=== PATIENT | male | born 1960 | race Caucasian/White ===

== ENCOUNTER 2016-04-11 07:29 | Outpatient (CLI) ==
[2015-06-20 17:35] VITALS: BMI 43.1
[2016-04-11 07:51] LABS: BASOPHILS # (AUTO) 0.1 K/uL (0-0.2); BASOPHILS % (AUTO) 0.6 % (0.0-3.0); EOSINOPHILS # (AUTO) 0.3 K/ul (0.0-0.7); EOSINOPHILS % (AUTO) 4.1 % (0.0-7.0); HEMATOCRIT 45.3 % (42.0-52.0); HEMOGLOBIN 15.8 g/dl (14.0-18.0); IMMATURE GRANULOCYTE % (AUTO) 0.4 % (0.0-5.0); LYMPHOCYTES # (AUTO) 2.6 K/uL (0.60-3.4); LYMPHOCYTES % (AUTO) 31.3 (10.0-50.0); MEAN CORPUSCULAR HEMOGLOBIN 30.3 pg (27.0-31.0); MEAN CORPUSCULAR HGB CONC 34.9 (31.8-35.4); MEAN CORPUSCULAR VOLUME 86.9 fl (80.0-94.0); MONOCYTES # (AUTO) 0.7 K/uL (0.4-2.0); MONOCYTES % (AUTO) 8.2 (0-10); NEUTROPHILS # (AUTO) 4.5 K/ul (2.0-6.9); NEUTROPHILS % (AUTO) 55.4; PLATELET COUNT 197 10^3/uL (140-440); RED BLOOD COUNT 5.21 10^6/ul (4.70-6.10)
[2016-04-11 08:34] LABS: ALBUMIN 3.6 g/dL (3.4-5.0); ALBUMIN/GLOBULIN RATIO 1.09; ANION GAP 16.4; BILIRUBIN,TOTAL 0.56 mg/dL (0.00-1.20); BUN/CREATININE RATIO 15.78; CALCIUM 9.3 mg/dL (8.2-10.2); CHOL/HDL RATIO 8.3 (4.5-6.4); CREATININE 0.95 mg/dL (0.60-1.10); POTASSIUM 4.4 mmol/L (3.5-5.1); TOTAL PROTEIN 6.9 g/dL (6.4-8.2)
== END 2016-04-11 07:30 | disposition home or self-care (01) ==
LOC: LAB 07:29
PROVIDERS: ATTEND Emergency Medicine
DX: E11.9 Type 2 diabetes mellitus without complications (principal); E78.1 Pure hyperglyceridemia; E78.5 Hyperlipidemia, unspecified; I10 Essential (primary) hypertension
CPT/HCPCS: 36415; 80053; 80061; 83036; 84443; 85025

== ENCOUNTER 2016-04-13 09:11 | Outpatient (CLI) ==
[2015-06-20 17:35] VITALS: BMI 43.1
--- NOTE | 2016-04-13 09:57 | DI ---
EXAM: Three views of the left elbow. History: Left elbow pain. Findings: No acute fracture or dislocation. No abnormal calcifications or radiopaque foreign bonnie s. Mild joint space narrowing at the elbow. Impression: No acute osseous abnormality. Mild arthritis.
== END 2016-04-13 09:12 | disposition home or self-care (01) ==
LOC: RAD 09:11
PROVIDERS: ATTEND Emergency Medicine
DX: M25.522 Pain in left elbow (principal)

== ENCOUNTER 2016-04-15 08:53 | Outpatient (CLI) ==
[2015-06-20 17:35] VITALS: BMI 43.1
== END 2016-04-15 08:54 | disposition home or self-care (01) ==
LOC: LAB 08:53
PROVIDERS: ATTEND Nurse Practitioner Family
DX: M25.522 Pain in left elbow (principal)
CPT/HCPCS: 36415; 84550

== ENCOUNTER 2016-07-06 07:11 | Outpatient (CLI) ==
[2015-06-20 17:35] VITALS: BMI 43.1
[2016-07-06 07:33] LABS: BASOPHILS % (AUTO) 0.5 % (0.0-3.0); EOSINOPHILS # (AUTO) 0.3 K/ul (0.0-0.7); EOSINOPHILS % (AUTO) 3.6 % (0.0-7.0); HEMATOCRIT 44.9 % (42.0-52.0); HEMOGLOBIN 15.7 g/dl (14.0-18.0); IMMATURE GRANULOCYTE % (AUTO) 0.3 % (0.0-5.0); LYMPHOCYTES # (AUTO) 2.6 K/uL (0.60-3.4); LYMPHOCYTES % (AUTO) 33.7 (10.0-50.0); MEAN CORPUSCULAR HEMOGLOBIN 30.3 pg (27.0-31.0); MEAN CORPUSCULAR VOLUME 86.5 fl (80.0-94.0); MONOCYTES # (AUTO) 0.5 K/uL (0.4-2.0); MONOCYTES % (AUTO) 6.9 (0-10); NEUTROPHILS # (AUTO) 4.2 K/ul (2.0-6.9); PLATELET COUNT 190 10^3/uL (140-440); RED BLOOD COUNT 5.19 10^6/ul (4.70-6.10); WHITE BLOOD COUNT 7.56 K/ul (4.2-10.2)
[2016-07-06 08:10] LABS: ALBUMIN 3.7 g/dL (3.4-5.0); ALBUMIN/GLOBULIN RATIO 1.06; ANION GAP 10.9; BILIRUBIN,TOTAL 0.62 mg/dL (0.00-1.20); BUN/CREATININE RATIO 15.46; CALCIUM 9.1 mg/dL (8.2-10.2); CHOL/HDL RATIO 7.5 (4.5-6.4); CREATININE 0.97 mg/dL (0.60-1.10); POTASSIUM 3.9 mmol/L (3.5-5.1); TOTAL PROTEIN 7.2 g/dL (6.4-8.2)
== END 2016-07-06 07:12 | disposition home or self-care (01) ==
LOC: LAB 07:11
PROVIDERS: ATTEND Emergency Medicine
DX: E11.9 Type 2 diabetes mellitus without complications (principal); E78.5 Hyperlipidemia, unspecified; I10 Essential (primary) hypertension
CPT/HCPCS: 36415; 80053; 80061; 83036; 84443; 85025

== ENCOUNTER 2016-11-23 16:17 | Outpatient (CLI) ==
[2015-06-20 17:35] VITALS: BMI 43.1
[2016-11-23 16:29] LABS: BASOPHILS # (AUTO) 0.1 K/uL (0-0.2); BASOPHILS % (AUTO) 0.6 % (0.0-3.0); EOSINOPHILS # (AUTO) 0.3 K/ul (0.0-0.7); EOSINOPHILS % (AUTO) 3.5 % (0.0-7.0); HEMATOCRIT 45.2 % (42.0-52.0); HEMOGLOBIN 16.4 g/dl (14.0-18.0); IMMATURE GRANULOCYTE % (AUTO) 0.2 % (0.0-5.0); LYMPHOCYTES # (AUTO) 2.2 K/uL (0.60-3.4); LYMPHOCYTES % (AUTO) 27.7 (10.0-50.0); MEAN CORPUSCULAR HGB CONC 36.3 (31.8-35.4); MEAN CORPUSCULAR VOLUME 85.4 fl (80.0-94.0); MONOCYTES # (AUTO) 0.5 K/uL (0.4-2.0); MONOCYTES % (AUTO) 6.4 (0-10); NEUTROPHILS % (AUTO) 61.6; PLATELET COUNT 136 10^3/uL (140-440); RED BLOOD COUNT 5.29 10^6/ul (4.70-6.10); WHITE BLOOD COUNT 8.09 K/ul (4.2-10.2)
[2016-11-23 17:14] LABS: ALBUMIN 3.8 g/dL (3.4-5.0); ALBUMIN/GLOBULIN RATIO 0.95; ANION GAP 18.5; BILIRUBIN,TOTAL 0.49 mg/dL (0.00-1.20); BUN/CREATININE RATIO 12.17; CALCIUM 9.7 mg/dL (8.2-10.2); CHOL/HDL RATIO 8.5 (4.5-6.4); CREATININE 1.15 mg/dL (0.60-1.10); POTASSIUM 4.5 mmol/L (3.5-5.1); TOTAL PROTEIN 7.8 g/dL (6.4-8.2)
== END 2016-11-23 16:18 | disposition home or self-care (01) ==
LOC: LAB 16:17
PROVIDERS: ATTEND Emergency Medicine
DX: E11.9 Type 2 diabetes mellitus without complications (principal); E78.1 Pure hyperglyceridemia; E78.5 Hyperlipidemia, unspecified; I10 Essential (primary) hypertension; E66.9 Obesity, unspecified
CPT/HCPCS: 36415; 80053; 80061; 83036; 84443; 85025

== ENCOUNTER 2017-01-25 09:47 | Outpatient (CLI) ==
[2015-06-20 17:35] VITALS: BMI 43.1
[2017-01-25 10:43] LABS: CHOL/HDL RATIO 7.7 (4.5-6.4)
== END 2017-01-25 09:48 | disposition home or self-care (01) ==
LOC: LAB 09:47
PROVIDERS: ATTEND Internal Medicine Cardiovascular Disease
DX: E78.5 Hyperlipidemia, unspecified (principal)
CPT/HCPCS: 36415; 80061

== ENCOUNTER 2017-03-08 08:03 | Outpatient (CLI) ==
[2015-06-20 17:35] VITALS: BMI 43.1
[2017-03-08 08:41] LABS: BASOPHILS # (AUTO) 0.1 K/uL (0-0.2); BASOPHILS % (AUTO) 0.7 % (0.0-3.0); EOSINOPHILS # (AUTO) 0.3 K/ul (0.0-0.7); EOSINOPHILS % (AUTO) 4.4 % (0.0-7.0); HEMATOCRIT 44.8 % (42.0-52.0); IMMATURE GRANULOCYTE % (AUTO) 0.3 % (0.0-5.0); LYMPHOCYTES % (AUTO) 26.5 (10.0-50.0); MEAN CORPUSCULAR HEMOGLOBIN 30.5 pg (27.0-31.0); MEAN CORPUSCULAR HGB CONC 35.7 (31.8-35.4); MEAN CORPUSCULAR VOLUME 85.3 fl (80.0-94.0); MONOCYTES # (AUTO) 0.5 K/uL (0.4-2.0); MONOCYTES % (AUTO) 6.7 (0-10); NEUTROPHILS # (AUTO) 4.6 K/ul (2.0-6.9); NEUTROPHILS % (AUTO) 61.4; PLATELET COUNT 184 10^3/uL (140-440); RED BLOOD COUNT 5.25 10^6/ul (4.70-6.10)
[2017-03-08 09:16] LABS: ALBUMIN 3.5 g/dL (3.4-5.0); ALBUMIN/GLOBULIN RATIO 0.95; BILIRUBIN,TOTAL 0.8 mg/dL (0.00-1.20); BUN/CREATININE RATIO 11.34; CALCIUM 9.2 mg/dL (8.2-10.2); CHOL/HDL RATIO 7.6 (4.5-6.4); CREATININE 0.97 mg/dL (0.60-1.10); TOTAL PROTEIN 7.2 g/dL (6.4-8.2)
== END 2017-03-08 08:04 | disposition home or self-care (01) ==
LOC: LAB 08:03
PROVIDERS: ATTEND Emergency Medicine
DX: E78.5 Hyperlipidemia, unspecified (principal); E11.9 Type 2 diabetes mellitus without complications; I10 Essential (primary) hypertension
CPT/HCPCS: 36415; 80053; 80061; 83036; 84443; 85025

== ENCOUNTER 2017-05-09 08:30 | Outpatient (CLI) ==
[2015-06-20 17:35] VITALS: BMI 43.1
== END 2017-05-09 08:31 | disposition home or self-care (01) ==
LOC: LAB 08:30
PROVIDERS: ATTEND Emergency Medicine
DX: E78.5 Hyperlipidemia, unspecified (principal); E78.1 Pure hyperglyceridemia; E11.9 Type 2 diabetes mellitus without complications; I10 Essential (primary) hypertension; Z12.5 Encounter for screening for malignant neoplasm of prostate
CPT/HCPCS: 36415; 80053; 80061; 83036; 85025

== ENCOUNTER 2017-08-07 08:18 | Outpatient (CLI) ==
[2015-06-20 17:35] VITALS: BMI 43.1
== END 2017-08-07 08:19 | disposition home or self-care (01) ==
LOC: LAB 08:18
PROVIDERS: ATTEND Emergency Medicine
DX: E11.9 Type 2 diabetes mellitus without complications (principal)
CPT/HCPCS: 36415; 80053; 80061; 84443

== ENCOUNTER 2017-10-16 08:05 | Outpatient (CLI) ==
[2015-06-20 17:35] VITALS: BMI 43.1
== END 2017-10-16 08:06 | disposition home or self-care (01) ==
LOC: LAB 08:05
PROVIDERS: ATTEND Emergency Medicine
DX: E11.9 Type 2 diabetes mellitus without complications (principal); E78.5 Hyperlipidemia, unspecified; I10 Essential (primary) hypertension; I48.0 Paroxysmal atrial fibrillation
CPT/HCPCS: 36415; 80053; 80061; 83036; 84443; 85025

== ENCOUNTER 2017-10-18 09:27 | Outpatient (CLI) ==
[2015-06-20 17:35] VITALS: BMI 43.1
== END 2017-10-18 09:28 | disposition home or self-care (01) ==
LOC: LAB 09:27
PROVIDERS: ATTEND Emergency Medicine
DX: E11.9 Type 2 diabetes mellitus without complications (principal)
CPT/HCPCS: 82043

== ENCOUNTER 2017-11-29 17:44 | Observation (INO) ==
[2017-11-29] MEDS ORDERED: MORPHINE 4 MG/ML SYRINGE IVP STA (18:11)
[2017-11-29] MEDS ORDERED: ZOFRAN 4 MG/2 ML IVP STA ×2 (18:11→19:57)
--- NOTE | 2017-11-29 18:17 | ED.PDOC ---
General Stated Complaint: ABDOMINAL PAIN, RECTAL BLEEDING ONSET THIS MORNING Time Seen by Physician: 18:00 (HX/O AFIB ON XERALTO) Mode of Arrival: Walk-In Information Source: Patient Exam Limitations: No limitations Nursing and Triage Documentation Reviewed and Agree: Yes Does patient meet sepsis criteria?: No If yes, has appropriate treatment been initiated?: No System Inflammatory Response Syndrome: Not Applicable <JUANA HUSSEIN - Last Filed: 11/29/17 18:25> <KENTRELL OCHOA - Last Filed: 11/29/17 19:59> ED Provider: Dr. KENTRELL OCHOA Chief Complaint: Abdominal Pain Primary Care Provider[facility] Sepsis Protocol: For patient's 13 years and over: Temp is 96.8 and below OR 101 and greater Pulse >90 BPM Resp >20/minute Acutely Altered Mental Status Are patient's symptoms suggestive of a new infection, such as: -Pneumonia -Skin, Soft Tissue -Endocarditis -UTI -Bone, Joint Infection -Implantable Device -Acute Abdominal Infection -Wound Infection -Meningitis -Blood Stream Catheter Infection -Unknown GI Complaint Exam - Abdominal Pain Complaint/Exam Onset: Gradual (HX/O AFIB ON XERALTO) Duration: SINCE 10 AM Symptoms Are: Still present Timing: Intermittent Initial Severity: Mild Current Severity: Mild Location of Pain: LLQ Radiates To: Reports: LLQ Character: Reports: Aching Aggravating: Reports: None Alleviating: Reports: None Associated Signs and Symptoms: Denies: Diaphoresis, Fever, Cough, Chest pain, Dizziness, Back pain, Constipation, Blood in stool, Dysuria, Urinary frequency, Decreased urine output, Decreased appetite, Discharge, Nausea, Vomiting, Diarrhea, Decreased activity Related History: Reports: Similar episode (DIVERTICULITIS) AAA Risk Factors: Reports: Hypertension Cardiac Risk Factors: Reports: DM, Hypertension Testicular Torsion Risk Factors: Reports: None Surgical Obstruction Risk Factors: Reports: None Related Surgical History: Reports: None Abdominal Findings: Present: None Rectal Exam: Present: Other (BLOOD WAS NOTED ) Differential Diagnoses: Appendicitis, Bowel Obstruction, Constipation, Diverticulitis, Gastroenteritis, Pancreatitis Quality Indicators for AMI: EKG in 10min. Quality Indicators for Cardiac Chest Pain: EKG in 10min. Quality Indicator For Non-Traumatic Chest Pain/Syncope: EKG Performed <JUANA HUSSEIN - Last Filed: 11/29/17 18:25> Review of Systems - Review Of Systems Constitutional: Reports: No symptoms Eyes: Reports: No symptoms Ears, Nose, Mouth, Throat: Reports: No symptoms Respiratory: Reports: No symptoms Cardiac: Reports: No symptoms GI: Reports: Abdominal pain, Rectal bleeding : Reports: No symptoms Musculoskeletal: Reports: No symptoms Skin: Reports: No symptoms Neurological: Reports: No symptoms Endocrine: Reports: No symptoms Hematologic/Lymphatic: Reports: No symptoms All Other Systems: Reviewed and Negative <MARYBENEDICTOJUANA Henley Last Filed: 11/29/17 18:25> Past Medical History - Past Medical History Previously Healthy: Yes Endocrine: Reports: DM 2, Dyslipidemia Cardiovascular: Reports: A-Fib Respiratory: Reports: None Hematological: Reports: None Gastrointestinal: Reports: None Genitourinary: Reports: None Neuro/Psych: Reports: None Musculoskeletal: Reports: Gout Cancer: Reports: None - Surgical History General Surgical History: Reports: Unknown - Family History Family History: Reports: Unknown - Social History Smoking Status: Former smoker Hx Substance Use: No Alcohol Screening: None <JOVITAJUANA Henley Filed: 11/29/17 18:25> Physical Exam - Physical Exam Appearance: Well-appearing, No pain distress, Well-nourished Eyes: AJSON, EOMI, Conjunctiva clear ENT: Ears normal, Nose normal, Oropharynx normal Respiratory: Airway patent, Breath sounds clear, Breath sounds equal, Respirations nonlabored Cardiovascular: RRR, Pulses normal, No rub, No murmur GI/: Tender (LLQ . RECTAL EXAM :BLOOD NOTED ON THE RECTAL VAULT (NURSE WAS PRESENT )) Musculoskeletal: Normal strength, ROM intact, No edema, No calf tenderness Skin: Warm, Dry, Normal color Neurological: Sensation intact, Motor intact, Reflexes intact, Cranial nerves intact, Alert, Oriented Psychiatric: Affect appropriate, Mood appropriate <MARYBENEDICTOJUANA Henley Last Filed: 11/29/17 18:25> Interpretation - Radiological Technologist Rhythm: Other (AFIB) - EKG Interpretation Rhythm: Other (AFIB WITH CONTROLLED RATE) [place]: Left ST Segment: Other (POOR R WAVE PROGRESSION) <JOVITAJUANA Henley Last Filed: 11/29/17 18:25> Physician Notification - Case Discussed Physician Notified: BRANDO Time of Notification: 19:00 <JOVITAJUANA Henley Last Filed: 11/29/17 18:25> - Case Discussed Physician Notified: dr salmeron Time of Notification: 19:58 <KENTRELL OCHOA - Last Filed: 11/29/17 19:59> Critical Care Note - Critical Care Note Total Time (mins): 0 <JUANA HUSSEIN - Last Filed: 11/29/17 18:25> Course - Course Hematology/Chemistry: 11/29/17 18:14 <JUANA HUSSEIN - Last Filed: 11/29/17 18:25> - Course Hematology/Chemistry: 11/29/17 18:14 11/29/17 18:14 <KENTRELL OCHOA - Last Filed: 11/29/17 19:59> - Course Orders, Labs, Meds: Lab Review 11/29/17 11/29/17 11/29/17 18:10 18:14 18:14 WBC 12.27 H RBC 4.83 Hgb 14.6 Hct 42.7 MCV 88.4 MCH 30.2 MCHC 34.2 RDW Coeff of Solitario 14.0 Plt Count 182 Immature Gran % (Auto) 0.2 Neut % (Auto) 76.2 Lymph % (Auto) 14.8 [place] % (Auto) 6.5 Eos % (Auto) 2.0 Baso % (Auto) 0.3 Immature Gran # (Auto) 0.0 Neut # (Auto) 9.3 H Lymph # (Auto) 1.8 [place] # (Auto) 0.8 Eos # (Auto) 0.3 Baso # (Auto) 0.0 PT 13.5 H INR 1.36 APTT 34.7 Sodium Potassium Chloride Carbon Dioxide Anion Gap BUN Creatinine Estimated GFR (MDRD) BUN/Creatinine Ratio Glucose Calcium Total Bilirubin AST ALT Alkaline Phosphatase Total Protein Albumin Globulin Albumin/Globulin Ratio Amylase Lipase Urine Color Urine Clarity Urine pH Ur Specific [place] Urine Protein Urine Glucose (UA) Urine Ketones Urine Blood Urine Nitrite Urine Bilirubin Urine Urobilinogen Ur Leukocyte Esterase Stl Occult Blood (IFOB) Positive Stool Occult Blood #2 Pending Stool Occult Blood #3 Pending 11/29/17 11/29/17 18:14 19:32 WBC RBC Hgb Hct MCV MCH MCHC RDW Coeff of Solitario Plt Count Immature Gran % (Auto) Neut % (Auto) Lymph % (Auto) [place] % (Auto) Eos % (Auto) Baso % (Auto) Immature Gran # (Auto) Neut # (Auto) Lymph # (Auto) [place] # (Auto) Eos # (Auto) Baso # (Auto) PT INR APTT Sodium 141 Potassium 4.1 Chloride 107 Carbon Dioxide 26 Anion Gap 12.1 BUN 13 Creatinine 0.99 Estimated GFR (MDRD) 78.00 BUN/Creatinine Ratio 13.13 Glucose 95 Calcium 8.9 Total Bilirubin 1.0 AST 16 ALT 21 Alkaline Phosphatase 81 Total Protein 7.0 Albumin 3.6 Globulin 3.4 Albumin/Globulin Ratio 1.06 Amylase 22 L Lipase 7 L Urine Color Dark Urine Clarity Clear Urine pH 5.5 Ur Specific [place] 1.025 Urine Protein Negative Urine Glucose (UA) Negative Urine Ketones Negative Urine Blood Negative Urine Nitrite Negative Urine Bilirubin Negative Urine Urobilinogen 0.2 Ur Leukocyte Esterase Negative Stl Occult Blood (IFOB) Stool Occult Blood #2 Stool Occult Blood #3 Orders Category Date Time Status EKG-(ED ONLY) Stat CARDIO 11/29/17 18:12 Completed NPO REMINDER: IMAGING ONCE CARE 11/29/17 18:13 Completed AMYLASE Stat LAB 11/29/17 18:14 Completed CBC W/ AUTO DIFF Stat LAB 11/29/17 18:14 Completed COMPREHENSIVE METABOLIC PANEL Stat LAB 11/29/17 18:14 Completed LIPASE Stat LAB 11/29/17 18:14 Completed OCCULT BLOOD, STOOL Stat LAB 11/29/17 18:10 Results PARTIAL THROMBOPLASTIN TIME Stat LAB 11/29/17 18:14 Completed PT WITH INR Stat LAB 11/29/17 18:14 Completed URINALYSIS C & S IF INDICATED Stat LAB 11/29/17 19:32 Completed Morphine Sulfate [Morphine 2 mg/ml Syringe] MEDS 11/29/17 19:57 Stat 2 mg IVP ONCE STA Morphine Sulfate [Morphine 4 mg/ml Syringe] MEDS 11/29/17 18:11 Discontinued 4 mg IVP ONCE STA Ondansetron HCl/Pf [Zofran 4 mg/2 ml] MEDS 11/29/17 18:11 Discontinued 4 mg IVP ONCE STA Ondansetron HCl/Pf [Zofran 4 mg/2 ml] MEDS 11/29/17 19:57 Stat 4 mg IVP ONCE STA CT ABDOMEN/PELVIS W/WO CONTRAS Stat RADS 11/29/17 18:12 Completed Medications Discontinued Medications Generic Name Dose Route Start Last Admin Trade Name Freq PRN Reason Stop Dose Admin Morphine Sulfate 4 mg 11/29/17 18:11 11/29/17 18:21 Morphine 4 Mg/Ml Syringe IVP 11/29/17 18:12 4 mg ONCE STA Administration Ondansetron HCl 4 mg 11/29/17 18:11 11/29/17 18:20 Zofran 4 Mg/2 Ml IVP 11/29/17 18:12 4 mg ONCE STA Administration Vital Signs: Temp Pulse Resp BP Pulse Ox 11/29/17 17:44 99.1 F 76 16 132/93 H 96 Departure - Departure Pt referred to PMD for follow-up: Yes IPMP verified?: No Disposition Discussed With: Patient, Family <JUANA HUSSEIN - Last Filed: 11/29/17 18:25> - Departure Time of Disposition: 19:58 Pt referred to PMD for follow-up: No IPMP verified?: No Disposition Discussed With: Patient, Family <KENTRELL OCHOA - Last Filed: 11/29/17 19:59> - Departure Disposition: ADMITTED INPATIENT Discharge Problem: Abdominal pain, Acute diverticulitis Instructions: Rectal Bleeding (ED) Condition: Good Additional Instructions: Please call your Family Physician as soon as possible to schedule a follow-up appointment. Allergies/Adverse Reactions: Allergies doxycycline Allergy (Intermediate, Verified 11/29/17 17:47) swelling lisinopril Allergy (Mild, Verified 11/29/17 17:47) cough Patient will notify drugstore Home Medications: Ambulatory Orders Aspirin 81 mg PO DAILY 09/24/14 Niacin 500 mg PO DAILY 09/24/14 Rivaroxaban [Xarelto] 20 mg PO DAILY 03/10/17
--- NOTE | 2017-11-29 19:54 | CT ---
EXAM: CT abdomen pelvis with and without contrast TECHNIQUE: Helical axial CT of the abdomen and pelvis was performed with and without contrast with c oronal and sagittal reconstructions. COMPARISON: None HISTORY: Rectal bleeding and history of diverticulitis. FINDINGS: There is a short segment of sigmoid colon bowel wall thickening in the left lower quadrant with quite a bit of surrounding mesenteric edema and some associated diverticuli. There is no free air or absc ess seen. There is no bowel obstruction. There are no pathologic lymph nodes. The liver, spleen, pancreas,and adrenal glands show no acute abnormality. There is fatty infiltration of the liver. There is a splenule at the spleen. Lung bases are well-aerated. There is no hiatal h ernia. There is a small calcification in the gallbladder consistent with sludge or small stones. The re is no gallbladder inflammation. There is no biliary or pancreatic ductal dilatation. There are no suspicious renal masses or large cysts and no hydronephrosis. There are no kidney stones . There is a small cyst in the left kidney. Both ureters demonstrate normal course and caliber. Ther e is no filling defect in the urinary bladder. The appendix is unremarkable. There are no abdominal wall hernias. There is some mild calcific athe rosclerosis of the aorta. There are no acute osseous abnormalities. IMPRESSION: 1. Acute sigmoid diverticulitis as described. 2. Gallstones or sludge with no inflammation. 3. Fatty liver. 4. Other findings as above.
[2017-11-29] MEDS ORDERED: MORPHINE 2 MG/ML SYRINGE IVP STA (19:57)
[2017-11-29] MEDS ORDERED: LEVAQUIN 500 MG in PREMIX 100 ML D5W 1 BAG IV SCH (20:30)
[2017-11-29] MEDS ORDERED: HUMULIN R SUBCUT PRN (20:35)
[2017-11-29 21:09] VITALS: BMI 42.0
[2017-11-29] MEDS: LOPID PO SCH (21:32)
[2017-11-29] MEDS ORDERED: LEVAQUIN 100 ML IV ONE (21:46)
[2017-11-29] MEDS ORDERED: FLAGYL 500 MG/100 ML 100 ML IV ONE (21:46)
[2017-11-29] MEDS: D5%-NS-KCL 20 MEQ/L IV SOL 1,000 ML IV SCH (22:04)
[2017-11-29] MEDS: FLAGYL 500 MG/100 ML 500 MG in PREMIX 100 ML NS 1 BAG IV SCH (22:04)
[2017-11-29] MEDS: ZOFRAN 4 MG/2 ML IVP PRN (23:26)
[2017-11-29] MEDS: MORPHINE 2 MG/ML SYRINGE IVP PRN (23:26)
[2017-11-30] MEDS ORDERED: FLAGYL 500 MG/100 ML 100 ML IV ONE (05:30)
[2017-11-30] MEDS: FLAGYL 500 MG/100 ML 500 MG in PREMIX 100 ML NS 1 BAG IV SCH ×3 (05:51→19:59)
[2017-11-30] MEDS: MORPHINE 2 MG/ML SYRINGE IVP PRN ×4 (07:22→21:19)
[2017-11-30] MEDS: ZOFRAN 4 MG/2 ML IVP PRN ×4 (07:22→21:19)
[2017-11-30] MEDS: LOPID PO SCH ×2 (08:58→21:20)
[2017-11-30] MEDS: LIPITOR PO SCH (08:59)
[2017-11-30] MEDS: ZYLOPRIM PO SCH (08:59)
[2017-11-30] MEDS: D5%-NS-KCL 20 MEQ/L IV SOL 1,000 ML IV SCH ×2 (09:02→18:17)
[2017-11-30] MEDS: LOVENOX SUBCUT SCH ×2 (09:03→21:19)
[2017-11-30] MEDS ORDERED: XARELTO PO SCH (17:00)
[2017-11-30] MEDS ORDERED: NON-FORMULARY MEDICATION (Rivaroxaban [Xarelto] 20 MG) PO SCH (21:00)
[2017-11-30] MEDS: LEVAQUIN 500 MG in PREMIX 100 ML D5W 1 BAG IV SCH (21:19)
[2017-12-01] MEDS: D5%-NS-KCL 20 MEQ/L IV SOL 1,000 ML IV SCH ×4 (03:37→18:20)
[2017-12-01] MEDS: FLAGYL 500 MG/100 ML 500 MG in PREMIX 100 ML NS 1 BAG IV SCH ×3 (05:44→22:05)
[2017-12-01] MEDS: MORPHINE 2 MG/ML SYRINGE IVP PRN (05:59)
[2017-12-01] MEDS: LOPID PO SCH ×2 (09:15→20:09)
[2017-12-01] MEDS: MORPHINE 2 MG/ML SYRINGE IVP SCH ×2 (09:16→20:38)
[2017-12-01] MEDS: ZYLOPRIM PO SCH (09:16)
[2017-12-01] MEDS: MIRALAX PO SCH (09:16)
[2017-12-01] MEDS: LOVENOX SUBCUT SCH ×2 (09:16→20:08)
[2017-12-01] MEDS: LIPITOR PO SCH (09:16)
--- NOTE | 2017-12-01 10:23 | HP ---
DATE OF SERVICE: 11/29/17 CHIEF COMPLAINT/HISTORY OF PRESENT ILLNESS: 57-year-old male came to the emergency room with severe left lower quadrant tenderness since morning. He has been passing some blood. The patient has history of atrial fibrillation on Xarelto. He came to the emergency room as the patient was scared that he was having bloody bowel movements. Temperature 99.1, saw Dr. Joseph in the emergency room. White count 12,[address] abdomen adn pelvis done which showed acute sigmoid diverticulitis as described. No bowel obstruction. Gallstones and sludge in the gallbladder. No inflammation. Fatty liver. At that time, the patient was admitted to the hospital with rectal bleeding, sigmoid diverticulitis with white count elevation with left shift. REVIEW OF SYSTEMS: CONSTITUTIONAL: No fever, no chills. HEENT: Normal. ENDOCRINE: No weight gain; no weight loss. CVS: No chest pain. No PND, no orthopnea. No shortness of breath. No PND, no orthopnea. RESPIRATORY: No cough, no congestion. No hemoptysis. GI: Nausea. No vomiting. Abdominal pain. Blood in stool. : No hematuria. No polyuria. MUSCULOSKELETAL: No joint swelling. PSYCHIATRIC: Anxious. No depression. No suicidal thoughts. No homicidal thoughts. SKIN: Intact, no open lesions. PAST MEDICAL HISTORY: CAD two years ago Atrial fibrillation Dyslipidemia Sleep apnea on CPAP Diverticulosis Osteoarthritis Diabetes mellitus Hypertension Gout in elbow PAST SURGICAL HISTORY: None PERSONAL HISTORY: Does not smoke. No alcohol use. FAMILY HISTORY: Coronary artery disease, dialysis and bone cancer. MEDICATIONS: Niacin Aspirin [place] 3 Xarelto Lipitor Lopid Metoprolol Allopurinol ALLERGIES: DOXYCYCLINE PHYSICAL EXAMINATION: GENERAL: Sick looking male lying in bed in pain. V/S: BP 132/93, respiratory rate 16, heart rate 76, temperature 99.1, saturation 96. HEENT: Atraumatic, normocephalic. No scleral icterus. Mucosa dry. NECK: Supple. No JVD, no bruit. No lymphadenopathy. No thyromegaly. HEART: S1, S2 normal. No murmur. No cyanosis or clubbing. No ascites. LUNGS: Clear to auscultation. No rales or rhonchi. ABDOMEN: Soft. Left lower quadrant tenderness positive. Bowel sounds are not present. No CVA tenderness. No rigidity or guarding. EXTREMITIES: No pedal edema. No cyanosis or clubbing MUSCULOSKELETAL: Normal joints, no swelling. NEUROLOGIC: The patient is awake and alert. SKIN: Intact; no open lesions. LYMPHATIC: No lymph nodes palpable. LABS: White count 12.27, hemoglobin 14.6, hematocrit 42.7, platelet count 182. Sodium 141, potassium 4.1, chloride 107, bicarb 26, BUN 13, creatinine 0.77. Urine negative. Stool for occult blood test positive. ASSESSMENT: 1. ACUTE SIGMOID DIVERTICULITIS 2. RECTAL BLEEDING 3. ATRIAL FIBRILLATION ON CARE HOME ANTICOAGULATION 4. CAD 5. DYSLIPIDEMIA 6. HYPERTENSION 7. GOUT 8. DIABETES PLAN: 1. Admit the patient to the regular floor. 2. NPO 3. CBC, CMP today and daily 4. Stop Xarelto 5. Start patient on Flagyl and Levaquin 6. NPO 7. D5 NS 8. Accu-Checks every four hours with coverage TIME SPENT: MORE THAN 65 minutes MTDD
--- NOTE | 2017-12-01 10:29 | PN ---
DATE OF SERVICE: 11/30/17 SUBJECTIVE: The patient is still having pain, 8 to 9/10, not passing gas. He has not had any bowel movements to see if there is any blood. REVIEW OF SYSTEMS: CONSTITUTIONAL: No fever, no chills. HEENT: Normal. ENDOCRINE: No weight gain, no weight loss. CVS: No angina symptoms. No CHF symptoms. No palpitations. No atypical chest pain for CAD. No shortness of breath. No PND, no orthopnea. RESPIRATORY: No cough, no hemoptysis. GI: Abdominal tenderness. No nausea, no vomiting. : No hematuria. No polyuria. MUSCULOSKELETAL: No joint swelling. PSYCHIATRIC: Not anxious. No depression. No suicidal thoughts. No homicidal thoughts. SKIN: Intact. No rash. PHYSICAL EXAMINATION: V/S: BP 137/88, respiratory rate 16, heart rate 85, temperature 98.2, saturation 98. HEENT: Normocephalic, atraumatic. Mucosa dry. NECK: Supple. No JVD, no carotid bruit. No lymphadenopathy. LUNGS: Clear to auscultation. No rales or rhonchi. HEART: S1, S2 normal. No S3. No murmur, gallop or regurgitation. ABDOMEN: Tenderness present left lower quadrant. Bowel sounds very sluggish. No rigidity. No rebound or guarding. No CVA tenderness. EXTREMITIES: No cyanosis, clubbing or pedal edema. MUSCULOSKELETAL: No joint swelling. NEUROLOGIC: Awake, alert. No focal deficit. LYMPHATIC: No lymph nodes palpable. SKIN: Intact. LABS: White count 10.83, hemoglobin 13.7, hematocrit 41.0, platelet count 167. Sodium 140, potassium 4.2, chloride 107, bicarb 26, BUN 14, creatinine 0.92, glucose 132. ASSESSMENT: 1. ACUTE SIGMOID DIVERTICULITIS 2. RECTAL BLEEDING 3. OCCULT BLOOD POSITIVE 4. ATRIAL FIBRILLATION 5. DIABETES MELLITUS 6. CORONARY ARTERY DISEASE 7. HYPERTENSION 8. DYSLIPIDEMIA 9. GOUT PLAN: 1. Continue Levaquin 2. Flagyl 3. D5 NS 4. Accu-Checks 5. Lovenox for DVT prophylaxis TIME SPENT: More than 35 minutes MTDD
--- NOTE | 2017-12-01 16:07 | DI ---
EXAM: Single view of the abdomen. History: Abdominal pain, diverticulitis. Comparison: CT abdomen pelvis 11/29/2017 Findings: Nonspecific but nonobstructive bowel gas pattern. No free intraperitoneal air. No acute osseous abnormalities. No suspicious calcifications. Degenerative changes of the spine. Impression: No evidence for bowel obstruction. No free intraperitoneal air identified radiographica lly.
[2017-12-01] MEDS ORDERED: MILK OF MAGNESIA PO STA (18:21)
[2017-12-01] MEDS: LEVAQUIN 500 MG in PREMIX 100 ML D5W 1 BAG IV SCH (20:08)
[2017-12-02] MEDS: FLAGYL 500 MG/100 ML 500 MG in PREMIX 100 ML NS 1 BAG IV SCH ×2 (04:51→12:25)
[2017-12-02] MEDS: LIPITOR PO SCH (08:29)
[2017-12-02] MEDS: LOPID PO SCH (08:29)
[2017-12-02] MEDS: ZYLOPRIM PO SCH (08:29)
[2017-12-02] MEDS: LOVENOX SUBCUT SCH (08:30)
[2017-12-02] MEDS: MIRALAX PO SCH (08:30)
[2017-12-02] MEDS: MORPHINE 2 MG/ML SYRINGE IVP SCH (09:00)
[2017-12-02] MEDS ORDERED: GLUCOPHAGE PO SCH (09:00)
[2017-12-02 14:14] VITALS: BP 124/96; TEMP 98.1
--- NOTE | 2017-12-02 15:45 | PCM.HOSP ---
- Observation Care Discharge [id number] OBS Care Discharge (15971): 12/02 - Initial Observation Care [id number] High Complexity 70 Minutes (88144): 11/29 - Subsequent Observation Care [id number] 35 Minutes per Day (44070): 11/30. 12/01
--- NOTE | 2017-12-06 06:44 | PN ---
DATE OF SERVICE: 12/01/17 SUBJECTIVE: The patient was admitted with left-sided sigmoid diverticulitis. He did not have any bowel movements since admission. The pain is some better, passing gas. REVIEW OF SYSTEMS: CONSTITUTIONAL: No fever, no chills. HEENT: Normal. ENDOCRINE: No weight gain, no weight loss. CVS: No angina symptoms. No CHF symptoms. No palpitations. No atypical chest pain for CAD. No shortness of breath. No PND, no orthopnea. RESPIRATORY: No cough, no hemoptysis. GI: Abdominal pain better. No nausea, no vomiting. : No hematuria. No polyuria. MUSCULOSKELETAL: No joint swelling. PSYCHIATRIC: Not anxious. No depression. No suicidal thoughts. No homicidal thoughts. SKIN: Intact. No rash. PHYSICAL EXAMINATION: V/S: BP 121/83, respiratory rate 16, heart rate 98, temperature 97.9, saturation 95. HEENT: Normocephalic, atraumatic. Mucosa dry. Pallor positive. No icterus. NECK: Supple. No JVD, no carotid bruit. No lymphadenopathy. LUNGS: Clear to auscultation. No rales or rhonchi. HEART: S1, S2 normal. No S3. No murmur, gallop or regurgitation. ABDOMEN: Soft. Left lower quadrant tenderness present. Bowel sounds present, sluggish. No rigidity. No rebound or guarding. No CVA tenderness. EXTREMITIES: No cyanosis, clubbing or pedal edema. MUSCULOSKELETAL: No joint swelling. NEUROLOGIC: Awake, alert. No focal deficit. LYMPHATIC: No lymph nodes palpable. SKIN: Intact. LABS: White count 7.50, hemoglobin 13.4, hematocrit 40.5, platelet count 137. Sodium 138, potassium 4.2, chloride 106, bicarb 25, BUN 15, creatinine 0.91, glucose 104. Stool for occult blood test positive. ASSESSMENT: 1. ACUTE LEFT-SIDED SIGMOID DIVERTICULITIS 2. ELEVATED WHITE COUNT WHICH IS GETTING BETTER 3. ANEMIA, DROP IN HEMOGLOBIN 4. HEMOCCULT POSITIVE 5. ATRIAL FIBRILLATION 6. DIABETES 7. HYPERTENSION PLAN: 1. Clear liquid diet 2. Accu-Cheks with coverage 3. Out of bed to chair 4. Lovenox TIME SPENT: More than 35 minutes MTDD
--- NOTE | 2017-12-06 06:57 | DS ---
DATE OF SERVICE: 12/02/17 FINAL DIAGNOSIS: 1. ACUTE SIGMOID DIVERTICULITIS 2. RECTAL BLEEDING, HEMOGLOBIN STABLE WITH POSITIVE OCCULT BLOOD TEST 3. ANEMIA 4. ATRIAL FIBRILLATION ON XARELTO 5. DIABETES TYPE 2 6. DYSLIPIDEMIA 7. OBESITY 8. OSTEOARTHRITIS DISCHARGE INSTRUCTIONS: 1. Discharge home. 2. Followup appointment in the [facility] within 5 to 7 days. MEDICATIONS AT DISCHARGE: Lipitor Lopid Metformin Aspirin Niacin Xarelto 20 mg p.o. daily Allopurinol NEW PRESCRIPTIONS: Augmentin Flagyl DIET INSTRUCTIONS: Soft. No seeds and no nuts. ACTIVITY: As patient tolerates. DISEASE SPECIFIC EDUCATION: Diverticulitis - risk of abscess needing colonoscopy, avoiding seeds and nuts have been discussed, verbalized understanding. HOSPITAL COURSE: The patient is a 57-year-old male came to the emergency room with rectal bleeding and severe abdominal pain, left lower quadrant. He was seen by Dr. Joseph. The patient had CT of abdomen done which showed sigmoid diverticulitis with hemoccult test positive. White count was 12,000. BUN and creatinine normal. Amylase and lipase normal. PT/INR normal. At that time, he was admitted to the hospital for acute diverticulitis with elevated white count and intractable pain, started on Levaquin and Flagyl. Lovenox was given for DVT prophylaxis. Xarelto was put on hold. Morphine was given for the pain. Accu- Cheks with coverage. D5 was given because of the patient's status being diabetes. All the medications were on hold. By the next day, the patient started feeling some better and had a bowel movement which had some blood in it. Gradually started on clear liquids then advanced to soft diet. Meanwhile, bleeding has stopped, pain has resolved. KUB done which did not show air under the diaphragm. Up and about walking. He did not have any problems. He had one more bowel movement just now and it was normal, no blood. At that time, the patient was discharged home. TIME SPENT: MORE THAN 65 MINUTES MTDD
== END 2017-12-02 15:43 | disposition home or self-care (01) ==
LOC: ED 17:44 → MEDSURG B 20:02 → INTOOBSV 20:02
PROVIDERS: ADMIT Emergency Medicine; ATTEND Emergency Medicine
DX: K62.5 Hemorrhage of anus and rectum (principal); K57.92 Diverticulitis of intestine, part unspecified, without perforation or abscess without bleeding; D64.9 Anemia, unspecified; R19.5 Other fecal abnormalities; I10 Essential (primary) hypertension; I48.91 Unspecified atrial fibrillation; I25.10 Atherosclerotic heart disease of native coronary artery without angina pectoris; E78.5 Hyperlipidemia, unspecified; E11.9 Type 2 diabetes mellitus without complications; E66.9 Obesity, unspecified; M10.9 Gout, unspecified; M19.90 Unspecified osteoarthritis, unspecified site; Z79.01 Long term (current) use of anticoagulants
CPT/HCPCS: 36415; 80053; 81001; 82150; 82272; 82962; 83690; 85025; 85610; 85730; 93005; 93010; 96374; 96375; 96376; 97802; 99284; 99285

== ENCOUNTER 2017-12-26 09:50 | Outpatient (CLI) | END 2017-12-26 09:51 | disposition home or self-care (01) | LOC: FCC-LAB 09:50 | PROVIDERS: ATTEND Family Medicine | DX: K57.92 Diverticulitis of intestine, part unspecified, without perforation or abscess without bleeding (principal) | CPT/HCPCS: 36415; 80053; 85025 ==

== ENCOUNTER 2017-12-29 10:27 | Outpatient (CLI) | END 2017-12-29 10:28 | disposition home or self-care (01) | LOC: FCC-LAB 10:27 | PROVIDERS: ATTEND Family Medicine | DX: K57.92 Diverticulitis of intestine, part unspecified, without perforation or abscess without bleeding (principal) | CPT/HCPCS: 82272 ==

== ENCOUNTER 2018-01-30 06:53 | Outpatient (CLI) | END 2018-01-30 06:54 | disposition home or self-care (01) | LOC: LAB 06:53 | PROVIDERS: ATTEND Nurse Practitioner | DX: M25.562 Pain in left knee (principal); Z87.39 Personal history of other diseases of the musculoskeletal system and connective tissue; K76.0 Fatty (change of) liver, not elsewhere classified | CPT/HCPCS: 36415; 80053; 84550; 85025 ==

== ENCOUNTER 2018-02-05 07:47 | Outpatient (CLI) ==
--- NOTE | 2018-02-05 08:33 | US ---
EXAM: Right upper quadrant abdominal ultrasound. History: Fatty liver. Comparison: CT abdomen pelvis 11/29/2017 Technique: Multiple sonographic images through the abdomen were obtained. Color duplex Doppler was used to interrogate vascular flow. Findings: The liver is mildly enlarged and diffusely echogenic. No focal liver lesions identified sonographica lly. There is antegrade flow within the main portal vein. No abdominal ascites. Cholelithiasis. N o gallbladder wall thickening. Common bile duct measures 0.5 cm in caliber. Pancreas was not well v isualized due to obscuration by bowel gas. Limited visualization of the right kidney demonstrates no abnormality. Impression: 1. Cholelithiasis. 2. Enlarged fatty liver
== END 2018-02-05 07:48 | disposition home or self-care (01) ==
LOC: RAD 07:47
PROVIDERS: ATTEND Nurse Practitioner
DX: K76.0 Fatty (change of) liver, not elsewhere classified (principal)

== ENCOUNTER 2018-04-16 09:47 | Outpatient (CLI) | END 2018-04-16 09:48 | disposition home or self-care (01) | LOC: LAB 09:47 | PROVIDERS: ATTEND Internal Medicine Cardiovascular Disease | DX: E78.5 Hyperlipidemia, unspecified (principal) | CPT/HCPCS: 36415; 80061 ==

== ENCOUNTER 2018-06-22 10:06 | Emergency (ER) ==
[2018-06-22 10:19] VITALS: BP 140/91; TEMP 97.6; BMI 42.5
--- NOTE | 2018-06-22 11:16 | ED.PDOC ---
General ED Provider: Dr. 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 Time Seen by Physician: 10:15 Mode of Arrival: Walk-In Information Source: Patient Exam Limitations: No limitations Primary Care Provider: RAMANDEEP MACIEL Nursing and Triage Documentation Reviewed and Agree: Yes Does patient meet sepsis criteria?: No System Inflammatory Response Syndrome: Not Applicable Sepsis Protocol: For patient's 13 years and over: Temp is 96.8 and below OR 101 and greater Pulse >90 BPM Resp >20/minute Acutely Altered Mental Status Are patient's symptoms suggestive of a new infection, such as: -Pneumonia -Skin, Soft Tissue -Endocarditis -UTI -Bone, Joint Infection -Implantable Device -Acute Abdominal Infection -Wound Infection -Meningitis -Blood Stream Catheter Infection -Unknown Respiratory Complaint Exam - Respiratory Complaint/Exam Onset/Duration: few days Symptoms Are: Still present Timing: Constant Initial Severity: Moderate Current Severity: Moderate Location: Chest Character: Reports: Non-productive cough Aggravating: Reports: Allergens Alleviating: Reports: Bronchodilators Associated Signs and Symptoms: Reports: Wheezing History of Healthcare-Acquired Pneumonia: No Related Surgical History: Reports: CABG Pulmonary Embolism Risk Factors: Recent surgery Cardiac Risk Factors: Reports: CAD, Family History Pseudomonas Risk Factors: Reports: None Tuberculosis Risk Factors: Reports: None Home Oxygen Use: No Recent Stress Test: No Recent Echo/LV Function: No Current Antibiotic Use: No Current Asthma Medication Use: No Respiratory Distress: Mild Inadequate Respiratory Effort: No Dysphagia Present: No Stridor Present: No JVD Present: No Accessory Muscle Use: No Retractions: Not Present Diminished Breath Sounds: No Prolonged Respiration: Expiratory phase Sinus Tenderness: None Grunting Respirations: No Differential Diagnoses: Asthma, CHF, COPD Exacerbation, Pneumonia, Pulmonary Embolism Non-Traumatic Chest Pain Syncope: EKG Performed Review of Systems - Review Of Systems Constitutional: Reports: Other Eyes: Reports: No symptoms Ears, Nose, Mouth, Throat: Reports: No symptoms Respiratory: Reports: Cough, Wheezing Cardiac: Reports: No symptoms GI: Reports: No symptoms : Reports: No symptoms Musculoskeletal: Reports: No symptoms Skin: Reports: No symptoms Neurological: Reports: No symptoms Endocrine: Reports: No symptoms Hematologic/Lymphatic: Reports: No symptoms All Other Systems: Reviewed and Negative Past Medical History - Past Medical History Previously Healthy: Yes Endocrine: Reports: DM 2, Dyslipidemia Cardiovascular: Reports: A-Fib Respiratory: Reports: None Hematological: Reports: None Gastrointestinal: Reports: None Genitourinary: Reports: None Neuro/Psych: Reports: None Musculoskeletal: Reports: Gout Cancer: Reports: None - Surgical History General Surgical History: Reports: Unknown - Family History Family History: Reports: Unknown - Social History Smoking Status: Former smoker Hx Substance Use: No Alcohol Screening: None Physical Exam - Physical Exam Appearance: Well-appearing Ill-appearing: None Pain Distress: None Eyes: JASON ENT: Ears normal Neck: Supple Respiratory: Airway patent, Wheezes Cardiovascular: Tachycardia GI/: Soft Musculoskeletal: Normal strength Skin: Warm Neurological: Sensation intact Critical Care Note - Critical Care Note Total Time (mins): 0 Course - Course Hematology/Chemistry: 06/22/18 11:55 06/22/18 11:55 Orders, Labs, Meds: Lab Review 06/22/18 06/22/18 06/22/18 11:55 11:55 11:55 WBC 5.61 RBC 5.17 Hgb 15.2 Hct 45.1 MCV 87.2 MCH 29.4 MCHC 33.7 RDW Coeff of Solitario 13.4 Plt Count 180 Immature Gran % (Auto) 0.4 Neut % (Auto) 62.8 Lymph % (Auto) 21.0 [place] % (Auto) 11.9 H Eos % (Auto) 3.4 Baso % (Auto) 0.5 Immature Gran # (Auto) 0.0 Neut # (Auto) 3.5 Lymph # (Auto) 1.2 [place] # (Auto) 0.7 Eos # (Auto) 0.2 Baso # (Auto) 0.0 Sodium 138.5 Potassium 4.31 Chloride 100.6 Carbon Dioxide 28.2 Anion Gap 14.01 BUN 20.5 H Creatinine 1.19 H Estimated GFR (MDRD) 63.00 BUN/Creatinine Ratio 17.22 Glucose 98.9 Calcium 9.17 Total Bilirubin 0.87 AST 28.1 ALT 21.8 Alkaline Phosphatase 103.1 Total Creatine Kinase 139.8 CK-MB (CK-2) 1.110 CK-MB (CK-2) % 0.7900 Troponin I 0.041 NT-Pro-B Natriuret Pep 979.000 H Total Protein 7.81 Albumin 4.44 Globulin 3.37 Albumin/Globulin Ratio 1.31 Orders Category Date Time Status EKG-(ED ONLY) Stat CARDIO 06/22/18 10:27 Completed NEBULIZER TREATMENT Stat CARDIO 06/22/18 11:47 Completed NEBULIZER TREATMENT Stat CARDIO 06/22/18 13:29 Completed ED IV/MEDIPORT/POWERPORT .ONCE EMERGENCY 06/22/18 11:45 Active CBC W/ AUTO DIFF Stat LAB 06/22/18 11:55 Completed COMPREHENSIVE METABOLIC PANEL Stat LAB 06/22/18 11:55 Completed CREATINE KINASE Stat LAB 06/22/18 11:55 Completed PRO-BNP [NT-PROBNP] Stat LAB 06/22/18 11:55 Completed TROPONIN I Stat LAB 06/22/18 11:55 Completed 0.9 % Sodium Chloride [Saline Flush] MEDS 06/22/18 11:45 Active 1 syr IVF PRN PRN Albuterol Sulfate 0.083% Neb [Albuterol 0.083% Neb] MEDS 06/22/18 11:46 Discontinued 1 vial NEB ONCE STA Ipratropium/Albuterol Neb [Duoneb] MEDS 06/22/18 13:31 Discontinued 1 vial NEB .STK-MED ONE Ipratropium/Albuterol Neb [Duoneb] MEDS 06/22/18 13:29 Discontinued 1 vial NEB ONCE STA Methylprednisolone Sod Succ/Pf [Solu-Medrol 125 mg] MEDS 06/22/18 13:45 Discontinued 125 mg IVP ONCE STA CHEST, 2 VIEWS PA & LAT Stat RADS 06/22/18 11:36 Completed Medications Generic Name Dose Route Start Last Admin Trade Name Freq PRN Reason Stop Dose Admin Sodium Chloride 1 syr 06/22/18 11:45 06/22/18 13:55 Saline Flush IVF 1 syr PRN PRN Administration To flush IV Discontinued Medications Generic Name Dose Route Start Last Admin Trade Name Freq PRN Reason Stop Dose Admin Albuterol Sulfate 1 vial 06/22/18 11:46 06/22/18 12:20 Albuterol 0.083% Neb NEB 06/22/18 11:47 1 vial ONCE STA Administration Albuterol/Ipratropium 1 vial 06/22/18 13:29 06/22/18 13:48 Duoneb NEB 06/22/18 13:30 Not Given ONCE STA Methylprednisolone Sodium Succinate 125 mg 06/22/18 13:45 06/22/18 13:53 Solu-Medrol 125 Mg IVP 06/22/18 13:46 125 mg ONCE STA Administration Vital Signs: Temp Pulse Resp BP Pulse Ox 06/22/18 10:06 97.6 F 91 H 20 140/91 H 96 Departure - Departure Time of Disposition: 14:14 Disposition: HOME SELF-CARE Discharge Problem: Dysrhythmia, cardiac Instructions: Amiodarone (By mouth) Condition: Good Pt referred to PMD for follow-up: Yes IPMP verified?: No Allergies/Adverse Reactions: Allergies doxycycline Allergy (Intermediate, Verified 06/22/18 10:10) swelling lisinopril Allergy (Mild, Verified 06/22/18 10:10) cough Patient will notify drugstore Home Medications: Ambulatory Orders Aspirin 81 mg PO DAILY 09/24/14 Niacin 500 mg PO DAILY 09/24/14 Rivaroxaban [Xarelto] 20 mg PO DAILY 03/10/17 Disposition Discussed With: Patient
[2018-06-22] MEDS ORDERED: SODIUM CHLORIDE 1,000 ML IV STA (11:45)
[2018-06-22] MEDS ORDERED: ALBUTEROL 0.083% NEB NEB STA (11:46)
--- NOTE | 2018-06-22 12:16 | DI ---
Exam: Two views of the chest. Comparison: 03/28/2016. Reason for exam: Wheezing and congestion. FINDINGS: No pneumothorax, pleural effusion, or focal consolidation. The cardiac silhouette is not enlarged. The imaged osseous structures appear grossly unremarkable without acute fracture. Impression: No acute cardiopulmonary process.
[2018-06-22] MEDS ORDERED: DUONEB NEB STA (13:29)
[2018-06-22] MEDS ORDERED: DUONEB NEB ONE (13:31)
[2018-06-22] MEDS ORDERED: SOLU-MEDROL 125 MG IVP STA (13:45)
== END 2018-06-22 15:20 | disposition home or self-care (01) ==
LOC: ED 10:06
DX: I49.9 Cardiac arrhythmia, unspecified (principal); R05 Cough; R06.2 Wheezing; E11.9 Type 2 diabetes mellitus without complications; E78.5 Hyperlipidemia, unspecified; I48.91 Unspecified atrial fibrillation; Z95.1 Presence of aortocoronary bypass graft
CPT/HCPCS: 36415; 80053; 82550; 82553; 83880; 84484; 85025; 93005; 93010; 94640; 96374; 96375; 99283

== ENCOUNTER 2018-09-17 16:20 | Outpatient (CLI) | END 2018-09-17 16:21 | disposition home or self-care (01) | LOC: RHC-LAB 16:20 → FCC-LAB 16:21 | PROVIDERS: ATTEND Family Medicine | DX: R53.81 Other malaise (principal); R73.9 Hyperglycemia, unspecified | CPT/HCPCS: 36415; 80053; 83037; 84443; 85025 ==

== ENCOUNTER 2018-12-05 13:10 | Outpatient (CLI) | END 2018-12-05 13:11 | disposition home or self-care (01) | LOC: RHC-LAB 13:10 → FCC-LAB 13:11 | PROVIDERS: ATTEND Family Medicine | DX: E11.9 Type 2 diabetes mellitus without complications (principal) | CPT/HCPCS: 82043 ==